=== PATIENT | female | born 1960 | race Caucasian/White ===

== ENCOUNTER → 2017-11-23 16:54 | Outpatient (CLI) | payer OTHER, SELFPAY ==
--- NOTE | 2017-11-23 16:57 | DI.RAD.S_ITS ---
PROCEDURE: XR FOOT RT MIN 3V INDICATIONS: injury to right foot pain and swelling forefoot 1st/2nd toes TECHNIQUE: 3 views of the foot were acquired. COMPARISON: [facility], , XR FOOT 3V LEFT, 06/21/2000, 15:43. FINDINGS: Bones: No fractures or dislocations. No suspicious bony lesions. Mild hallux valgus metatarsus prima varus alignment and medial bunion. Mild subchondral cystic change involving the medial aspect of the first metatarsal head. Mild first MTP and diffuse interphalangeal joint narrowing. Calcaneal spurring. Soft tissues: No tibiotalar joint effusion. Achilles tendon appears normal. IMPRESSION: 1. No displaced fracture seen. If there is continued pain, followup exam or additional imaging such as MRI or CT could be performed for further assessment. 2. Mild hallux valgus alignment and medial bunion. 3. Mild first MTP and diffuse interphalangeal joint degeneration. 4. Prominent plantar calcaneal enthesophyte. ated by: Saeid Cobb [facility] Interpreted: Aron Perkins MD on 11/23/2017 at 17:05 Approved by: Aron Perkins M.D. on 11/23/2017 at 17:42
== END ==
PROVIDERS: Family Provider Nurse Practitioner; PCP Physician Assistant; Visit Provider Physician Assistant
DX: M79.671 Pain in right foot (principal); M21.611 Bunion of right foot; M19.071 Primary osteoarthritis, right ankle and foot; M77.31 Calcaneal spur, right foot
CPT/HCPCS: 73630

== ENCOUNTER → 2018-01-05 08:46 | Outpatient (CLI) | payer OTHER, SELFPAY ==
--- NOTE | 2018-01-05 08:56 | DI.CT.S_ITS ---
PROCEDURE: CT LE RT WO CON INDICATIONS: Injury to right great toe persistant pain/swelling TECHNIQUE: Noncontrast 1-1.5 mm axial sections acquired from above the tibiotalar joint to the bottom of the calcaneus, with coronal and sagittal reformats. COMPARISON: [facility], CR, XR FOOT RT MIN 3V, 11/23/2017, 16:37. FINDINGS: Image quality: Excellent. Bones: No fracture identified. Specifically, no fracture demonstrated subjacent to the patient's dorsal cutaneous marker at the level of the 1st metatarsophalangeal joint. There is mild degeneration of the 1st metatarsophalangeal joint. There is a bipartite medial sesamoid. No definite joint effusions. Soft tissues: There is minimal fat stranding along the lateral aspect of the 1st metatarsophalangeal joint. Visualized flexor and extensor tendons appear grossly intact. No discrete mass or fluid collection demonstrated subjacent to the cutaneous marker in the area of pain symptoms. Visualized musculature demonstrates preserved bulk. IMPRESSION: 1. No fracture identified in the right foot corresponding to the area of pain. 2. Slight fat stranding along the lateral aspect of the 1st metatarsophalangeal joint is nonspecific and may reflect a possible capsular sprain. If there is persistent clinical suspicion for a soft tissue or capsular injury, further evaluation maybe obtained with MRI. Dictated by: Aron Perkins M.D. on 01/05/2018 at 16:16 Approved by: Aron Perkins M.D. on 01/05/2018 at 16:24
== END ==
PROVIDERS: Family Provider Nurse Practitioner; PCP Physician Assistant; Visit Provider Physician Assistant
DX: M79.671 Pain in right foot (principal); M79.89 Other specified soft tissue disorders; S99.921A Unspecified injury of right foot, initial encounter
CPT/HCPCS: 73700

== ENCOUNTER → 2018-07-15 13:12 | Outpatient (CLI) | payer OTHER, SELFPAY ==
[2018-07-15 14:42] LABS: Free T3, Triiodothyronine Free 3.75 pg/mL (2.77-5.27); Free T4, Direct Thyroxine 1.27 ng/dL (0.78-2.19)
[2018-07-15 14:56] LABS: Thyroid Stimulating Hormone 1.77 uIU/mL (0.47-4.68)
== END ==
PROVIDERS: Family Provider Physician Assistant; PCP Physician Assistant; Visit Provider Physician Assistant
DX: E03.9 Hypothyroidism, unspecified (principal)
CPT/HCPCS: 36415; 84439; 84443; 84481

== ENCOUNTER → 2019-04-05 13:42 | Outpatient (CLI) | payer OTHER, SELFPAY ==
--- NOTE | 2019-04-05 13:45 | DI.RAD.S_ITS ---
PROCEDURE: XR RIBS LT MIN 3V W CXR1V INDICATIONS: fall, pain to L ribs, r/o fx TECHNIQUE: 2 views of the left ribs were acquired, along with a single view chest. COMPARISON: None. FINDINGS: Surgical changes and devices: None. Bones and chest wall: No fractures or dislocations. No suspicious bony lesions. Overlying soft tissues appear unremarkable. Lungs and pleura: No pleural effusions or pneumothorax. Lungs appear clear. Mediastinum: Mediastinal contours appear normal. Heart size is normal. IMPRESSION: No acute fracture identified. No acute cardiopulmonary abnormalities. Dictated by: Fransico Hernández M.D. on 04/05/2019 at 15:18 Approved by: Fransico Hernández M.D. on 04/05/2019 at 15:19
== END ==
PROVIDERS: Family Provider Physician Assistant; PCP Physician Assistant; Visit Provider Physician Assistant
DX: S20.219A Contusion of unspecified front wall of thorax, initial encounter (principal); R07.81 Pleurodynia; W19.XXXA Unspecified fall, initial encounter
CPT/HCPCS: 71101

== ENCOUNTER → 2019-04-10 10:49 | Outpatient (CLI) | payer OTHER, SELFPAY ==
--- NOTE | 2019-04-10 10:51 | DI.RAD.S_ITS ---
PROCEDURE: XR KNEE RT 3V INDICATIONS: fall, knee pain, hx of surgery TECHNIQUE: 3 views of the knee were acquired. COMPARISON: [facility], , KNEE 1-2 VIEWS RIGHT, 11/25/2009, 12:47. FINDINGS: Bones: No fractures or dislocations. No suspicious bony lesions. Soft tissues: No joint effusion. No suspicious soft tissue calcifications. IMPRESSION: Expected postoperative alignment of right knee arthroplasty. No fracture. Dictated by: Silas Gagnon M.D. on 04/10/2019 at 11:24 Approved by: Silas Gagnon M.D. on 04/10/2019 at 11:25
== END ==
PROVIDERS: PCP Physician Assistant; Visit Provider Physician Assistant
DX: M25.561 Pain in right knee (principal); Z96.651 Presence of right artificial knee joint
CPT/HCPCS: 73562

== ENCOUNTER → 2019-07-20 10:00 | Outpatient (CLI) | payer OTHER, SELFPAY ==
[2019-07-20 11:30] LABS: Free T3, Triiodothyronine Free 3.68 pg/mL (2.77-5.27); Free T4, Direct Thyroxine 1.39 ng/dL (0.78-2.19)
[2019-07-20 11:43] LABS: Thyroid Stimulating Hormone 1.97 uIU/mL (0.47-4.68)
== END ==
PROVIDERS: PCP Physician Assistant; Referring Provider Physician Assistant; Visit Provider Physician Assistant
DX: E03.9 Hypothyroidism, unspecified (principal)
CPT/HCPCS: 36415; 84439; 84443; 84481

== ENCOUNTER → 2020-05-22 12:17 | Outpatient (CLI) | payer OTHER, SELFPAY | PROVIDERS: PCP Nurse Practitioner; Referring Provider Nurse Practitioner; Visit Provider Nurse Practitioner | DX: Z12.31 Encounter for screening mammogram for malignant neoplasm of breast (principal); Z53.20 Procedure and treatment not carried out because of patient's decision for unspecified reasons ==

== ENCOUNTER → 2020-06-19 12:09 | Outpatient (CLI) | payer OTHER, SELFPAY ==
[2020-06-19] MEDS: COVID-19 VACC(MODERNA-1)/PF 100 MCG/0.5 ML VIAL IM (12:14)
== END ==
PROVIDERS: PCP Nurse Practitioner; Visit Provider Internal Medicine
DX: Z23 Encounter for immunization (principal)
CPT/HCPCS: 0011A; 91301

== ENCOUNTER → 2020-07-18 11:59 | Outpatient (CLI) | payer OTHER, SELFPAY ==
[2020-07-18] MEDS: COVID-19 VACC #2, MRNA(MOD) 100 MCG/0.5 ML VIAL IM (12:17)
== END ==
PROVIDERS: PCP Nurse Practitioner; Visit Provider Internal Medicine
DX: Z23 Encounter for immunization (principal)
CPT/HCPCS: 0012A; 91301

== ENCOUNTER → 2020-11-04 16:25 | Outpatient (CLI) | payer OTHER, SELFPAY ==
--- NOTE | 2020-11-04 16:27 | DI.RAD.S_ITS ---
PROCEDURE: XR KNEE LT 3V INDICATIONS: Left knee pain and giving way TECHNIQUE: 3 views of the knee were acquired. COMPARISON: [facility], CR, XR KNEE RT 3V, 04/10/2019, 10:51. FINDINGS: Bones: No fractures or dislocations. Moderate to severe tricompartmental osteoarthritis is seen more prominent in medial femoral tibial compartment. No suspicious bony lesions. Soft tissues: Small suprapatellar joint effusion is seen. No suspicious soft tissue calcifications. IMPRESSION: Moderate to severe tricompartmental osteoarthritis more prominent in medial femoral tibial compartment. Small suprapatellar joint effusion. No fracture or dislocation. Dictated by: Carl Daniel M.D. on 11/04/2020 at 17:37 Approved by: Carl Daniel M.D. on 11/04/2020 at 17:38
== END ==
PROVIDERS: PCP Nurse Practitioner; Referring Provider Family Medicine; Visit Provider Family Medicine
DX: M25.562 Pain in left knee (principal); I10 Essential (primary) hypertension; M17.12 Unilateral primary osteoarthritis, left knee; M25.462 Effusion, left knee
CPT/HCPCS: 73562

== ENCOUNTER → 2020-11-07 17:32 | Outpatient (CLI) | payer OTHER, SELFPAY ==
--- NOTE | 2020-11-07 17:33 | DI.MRI.S_ITS ---
PROCEDURE: MR KNEE LT WO CON INDICATIONS: Left knee pain and giving way TECHNIQUE: Noncontrast sagittal PD fast spin echo and T2 fast spin echo with fat saturation, sagittal 3-D FLASH with fat saturation; coronal T1 spin echo and PD fast spin echo with fat saturation, and axial PD fast spin echo with fat saturation through the knee. COMPARISON: None. FINDINGS: Image quality: Diagnostic. Patient motion is noted, several sequences were repeated Menisci: There is peripheral displacement of medial meniscus bowing medial collateral ligament. Suggestion of complex tear involving body and posterior horn of medial meniscus extending to both superior and inferior articulating surfaces. There is also suggestion of complex tear involving anterior horn of lateral meniscus extending to superior articulating surface. The meniscal root ligaments appear intact. Cruciate ligaments: ACL is poorly visualized, suggestive of chronic myxoid degenerative changes and moderate grade intrasubstance partial-thickness tear. No definite full-thickness ACL rupture is seen. PCL is grossly intact. Medial structures: Moderate grade partial-thickness tear involving medial collateral ligament is seen. The posterior oblique ligament, semimembranosus tendon insertions, oblique popliteal ligament, and meniscocapsular junction appear intact. Visualized portions of the pes anserinus tendons appear normal. No abnormal bursal fluid. Lateral structures: The lateral collateral ligament, long and short heads of the biceps femoris tendon appear intact. The popliteus tendon appears normal. Iliotibial band appears normal. Anterior structures: The quadriceps and patellar tendons appear intact. Patellar alignment is normal. No femoral trochlear dysplasia or ventral trochlear prominence. No edema in the infrapatellar fat pad. Bones and cartilage: No bone marrow contusions or fractures. Moderate to severe tricompartmental osteoarthritis and chondromalacia is seen most prominent in medial femoral tibial compartment. Joint space: There is moderate amount of joint fluid, a small popliteal cyst is seen. Normal appearing synovial plicae are incidentally noted. IMPRESSION: 1. Limited study due to significant patient motion. 2. Suggestion of complex tear involving body and posterior horn of medial meniscus extending to both superior and inferior articulating surfaces. Peripheral displacement of medial meniscus bowing medial collateral ligament. Suggestion of complex tear involving anterior horn of lateral meniscus extending to superior articulating surface. 3. Poorly visualized anterior cruciate ligament with suggestion of chronic myxoid degenerative changes and moderate intrasubstance partial-thickness tear involving anterior cruciate ligament. No definite full-thickness ACL rupture. PCL is intact. 4. Moderate grade MCL sprain/partial-thickness tear. 5. Moderate to severe tricompartmental osteoarthritis and chondromalacia most prominent in medial femoral tibial compartment. Moderate amount of joint fluid. Small popliteal cyst. Dictated by: Carl Daniel M.D. on 11/08/2020 at 10:08 Approved by: Carl Daniel M.D. on 11/08/2020 at 10:14
== END ==
PROVIDERS: PCP Nurse Practitioner; Referring Provider Family Medicine; Visit Provider Family Medicine
DX: M25.562 Pain in left knee (principal); S83.412A Sprain of medial collateral ligament of left knee, initial encounter; M17.12 Unilateral primary osteoarthritis, left knee; M94.262 Chondromalacia, left knee; M71.22 Synovial cyst of popliteal space [Baker], left knee; I10 Essential (primary) hypertension
CPT/HCPCS: 73721

== ENCOUNTER → 2020-12-04 07:51 | Outpatient (CLI) | payer OTHER, SELFPAY ==
[2020-12-04 09:26] LABS: Hemoglobin A1C% w Est Avg Glu 5.2 % (4.0-6.0)
[2020-12-04 09:47] LABS: BUN Creatinine Ratio 24.3 (6-22); Blood Urea Nitrogen 25 mg/dL (7-17); Calcium 9.6 mg/dL (8.4-10.2); Carbon Dioxide 29 mmol/L (22-32); Chloride 102 mmol/L (98-107); Estimated Glomerular Filt Rate 54.8 mL/min (>60); Glucose 97 mg/dL (70-100); HEMOLYSIS < 15 (0-50); Potassium 4.1 mmol/L (3.4-5.1); Sodium 138 mmol/L (137-145)
[2020-12-04 09:52] LABS: Alanine Aminotransferase 16 IU/L (<35); Albumin 3.8 g/dL (3.5-5.0); Albumin Globulin Ratio 1.2 (1.0-2.8); Alkaline Phosphatase 103 U/L (38-126); Aspartate Aminotransferase 24 IU/L (14-36); Bilirubin Total 0.5 mg/dL (0.2-1.3); Bilirubin Unconjugated 0.4 mg/dL (0.0-1.1); Cholesterol 164 mg/dL (140-199); Globulin 3.1 g/dL (1.7-4.1); HDL Cholesterol 40 mg/dL (40-60); HEMOLYSIS < 15 (0-50); LDL Cholesterol Calculated 93 mg/dL (<100); Total Protein 6.9 g/dL (6.3-8.2); Triglycerides 155 mg/dL (35-150)
== END ==
PROVIDERS: PCP Nurse Practitioner; Referring Provider Orthopaedic Surgery; Visit Provider Orthopaedic Surgery
DX: Z01.812 Encounter for preprocedural laboratory examination (principal); Z01.818 Encounter for other preprocedural examination; Z00.00 Encounter for general adult medical examination without abnormal findings; R73.01 Impaired fasting glucose; M25.562 Pain in left knee
CPT/HCPCS: 36415; 80048; 80061; 80076; 83036; 93005; 93010

== ENCOUNTER → 2020-12-07 09:54 | Outpatient (CLI) | payer OTHER, SELFPAY ==
[2020-12-07 11:15] LABS: COVID19 -Nasal RAPID Negative (Negative)
== END ==
PROVIDERS: PCP Nurse Practitioner; Referring Provider Physician Assistant; Visit Provider Physician Assistant
DX: Z01.812 Encounter for preprocedural laboratory examination (principal); Z20.822 Contact with and (suspected) exposure to COVID-19
CPT/HCPCS: 87635

== ENCOUNTER 2020-12-09 12:59 | Day surgery (SDC) | payer OTHER, SELFPAY ==
[2020-12-06 11:40] VITALS: BMI 37.9
[2020-12-09] VITALS (11 sets, daily range): BP systolic 114–139; BP diastolic 70–96; PULSE 62–69; RESP 9–18; TEMP 36.2–37.3; O2SAT 92–96; BMI 37.9
--- NOTE | 2020-12-09 06:30 | DI.RAD.S_ITS ---
PROCEDURE: XR KNEE LT 1TO2V INDICATIONS: post op total knee LEFT TECHNIQUE: 2 view(s) of the knee acquired. [facility] 16:47. [facility], XR KNEE RT 3V, 04/10/2019, 10:51. FINDINGS: Bones: Patient is status post knee joint arthroplasty. Hardware components are in expected positions. Visualized bony structures are intact. Soft tissues: Overlying postoperative changes are noted. IMPRESSION: Expected postoperative appearance of the left knee arthroplasty. Dictated by: Cesar Brink M.D. on 12/10/2020 at 8:55 Approved by: Cesar Brink M.D. on 12/10/2020 at 8:57
[2020-12-09] MEDS: ACETAMINOPHEN 325 MG TABLET 975 MG PO (13:51)
[2020-12-09] MEDS: PREGABALIN 75 MG CAPSULE PO (13:51)
[2020-12-09] MEDS: LACTATED RINGERS 1,000 ML 42 ML IV (13:52)
--- NOTE | 2020-12-09 14:43 | PM.PREOP ---
Pre-operative Note COVID-19 COVID-19 status: Negative Result date/Date tested (Pos, Neg/Pending): 12/07/20 Interval Note History & Physical reviewed/Exam performed by Physician: Yes Changes to H&P: No
[2020-12-09] MEDS: CEFAZOLIN 1 GM VIAL 2 GM IV (15:10)
[2020-12-09] MEDS: TRANEXAMIC ACID 1,000 MG VIAL 1000 MG INJ ×2 (15:12→16:18)
--- NOTE | 2020-12-09 15:24 | SUR.OPER ---
Supine on padded OR bed. Pillow under head, arms secured on padded armboards <90 degree abduction. Safety belt across torso. Non-operative leg secured with tape over blanket over lower leg. Operative leg secured in [place]. Foam padded brace at thigh of operative leg.
[2020-12-09] MEDS: BUPIVACAINE 0.25% (PF) VIAL 30 ML INJ (15:31)
[2020-12-09] MEDS: BUPIVACAINE LIPOSOME 266 MG/20 ML VIAL INJ (15:32)
--- NOTE | 2020-12-09 16:52 | PM.OP.1 ---
Operative Date/Time/Diagnoses Date of procedure: 12/09/20 Time of procedure: 16:53 Pre-op diagnosis: Left knee osteoarthritis Post-op diagnosis: same Procedure & Clinicians Procedure: Left total knee replacement Same procedure as scheduled: Yes Indications: The patient has had progressively worsening left knee pain with radiographic changes consistent with arthritis. Non-operative management has failed and the patient has requested total knee replacement. The risks, benefits and alternatives to surgery were discussed with the patient prior to proceeding. Risks discussed included, but were not limited to, failure to relieve pain, stiffness, infection, nerve damage, deep venous thrombosis, pulmonary embolism, stroke, coma, heart attack, permanent paralysis and , as well as the potential need for eventual revision of the prosthetic. Surgeon: London Alvares Adventure Therapist: Sydnie Reynoso Anesthesia Type: Spinal, Sedation and Local Operative Notes Findings: Severe tricompartmental osteoarthritis Closure Type: primary Specimen(s): none sent Prosthetic devices, grafts, tissues, transplants, or devices: Implants used in this procedure were manufactured by the [employer] and [employer] and included the BCS II Journey total knee replacement with a size 5 left Oxinium femur, 4 left non porous tibial base plate, a 9 mm cross-linked polyethylene tibial insert and a 32 mm oval celina II patellar component Applied: implant(s) Estimated Blood Loss (mL): 25 Blood products transfused: none Tourniquet time (min): 52 Procedure in detail: The patient was seen in the pre-operative area, where the left knee was identified as the operative site and this was marked with my initials. The patient received pre-operative antibiotics, and was taken to the operating room and placed on the operative table in the supine position. After satisfactory anesthesia, a peer specialist out was performed. The left leg was encircled with a tourniquet about the proximal thigh, and the leg was prepared from the toes to the tourniquet with ChloroPrep in the usual fashion and draped through sterile drapes. The leg was elevated and exsanguinated with Eschmark bandage and the tourniquet inflated to 250 mmHg pressure. The knee was approached through an approximately 18 cm incision centered over the patella and carried into the knee through a medial parapatellar arthrotomy. The anterior osteophytes and soft tissues were removed. The rotational landmarks of Livan's line and the transepicondylar axis were marked on the femur with electrocautery, and intramedullary guide holes for the femur and tibia were created. The distal femoral cut was made in 6 degrees of valgus using the intramedullary guide at the primary cut setting. The proximal tibial cut was then made using the intramedullary guide, taking 9 mm of bone off the less involved side. The extension gap was checked and the rotation of the femoral component confirmed with the gap balancing blocks. The anterior, posterior and chamfer cuts were then made. The posterior osteophytes and soft tissues were then removed. The posterior capsule was injected with part of a mixture of 60 ml 0.25% Marcaine mixed with 20 ml Exparel for post-operative pain control. The remainder of this mixture was injected into the capsule and subcutaneous tissues during cement curing. The tibia was prepared with the rotation set by an extra medullary guide. Trial tibial and femoral components were then placed and the intercondylar notch cut through the femoral trial. Range of motion was 0-130 degrees, with good stability throughout the range. The patella was then cut to accommodate the patellar prosthetic. There was no need for a lateral release. The trials were then removed, and the femoral hole plugged with a bone plug. The bone was prepared with pulsatile lavage, and dried with a sponge. Cement was applied and the final prosthetics placed. Excess cement was removed during and after cement curing. After confirming there was no extruded cement posteriorly, the final tibial insert was placed. The knee was copiously irrigated and the tourniquet deflated. Hemostasis was obtained. The capsule was closed with interrupted # 2 polyester sutures. The subcutaneous layer was closed with 3-0 Vicryl, and the skin with a running 3-0 V-Lock suture and Dermabond. An Aquacel Ag dressing was applied and the patient was taken to recovery having tolerated the procedure well. Complications: none Post-operative Condition: stable Disposition: PACU Plan for aftercare: The patient will be maintained on a standard total knee replacement protocol with weight bearing as tolerated. The patient will receive aspirin and sequential compression devices for DVT prophylaxis. The patient will be discharged home when safe for the home environment.
[2020-12-09] MEDS: OXYCODONE IR 5 MG TABLET PO (17:04)
--- NOTE | 2020-12-09 17:36 | SUR.PHASEI ---
1722 to room 216, bed down and locked, call light within reach. Spouse present. Report given upon arrival. SCDs on. Staff informed of need for continuous pulse oximetry r/t duramorph spinal. Clothing bag and glasses to the room. Patient awake, oriented, comfortable, tolerating PO well. Stable with no questions from pt, staff, or her spouse.
[2020-12-09] MEDS: ONDANSETRON 4 MG/2 ML INJ IV (19:01)
[2020-12-09] MEDS: LACTATED RINGERS 1,000 ML 100 ML IV (19:02)
[2020-12-09] MEDS: ACETAMINOPHEN 325 MG TABLET 650 MG PO (21:10)
[2020-12-09] MEDS: IBUPROFEN 400 MG TABLET PO (21:10)
[2020-12-09] MEDS: ASPIRIN EC 81 MG TABLET PO (21:10)
[2020-12-09] MEDS: DOCUSATE 100 MG CAPSULE PO (21:10)
[2020-12-09] MEDS: carvediloL 3.125 MG TABLET 6.25 MG PO (21:11)
[2020-12-09] MEDS: HYDRALAZINE 10 MG TABLET PO (21:11)
[2020-12-10 00:30] VITALS: BP 130/81; PULSE 62; RESP 18; TEMP 36.5; O2SAT 95
[2020-12-10] MEDS: OXYCODONE IR 5 MG TABLET PO (01:52)
[2020-12-10 03:46] VITALS: BP 115/68; PULSE 73; RESP 18; TEMP 37.1; O2SAT 95
[2020-12-10] MEDS: LACTATED RINGERS 1,000 ML 100 ML IV (04:45)
[2020-12-10] MEDS: IBUPROFEN 400 MG TABLET PO ×2 (04:45→08:33)
[2020-12-10 05:39] LABS: Hematocrit 34.7 % (36-46); Hemoglobin 11.6 g/dL (12.0-16.0)
[2020-12-10 07:36] VITALS: BP 107/72; PULSE 64; RESP 16; TEMP 36.3; O2SAT 96
--- NOTE | 2020-12-10 07:58 | PM.DS.1 ---
History of Present Illness History of Present Illness Date Patient Seen: 12/10/20 Time Patient Seen: 07:58 Chief complaint: OPB Narrative: The history and physical is contained in the chart previously completed note. Please refer to that note for this information. Discharge Providers Provider Date of admission: 12/09/20 Discharge Date: 12/10/20 Primary care physician: LONDON Kong Consults: 12/09/20 17:41 Consult to Discharge Planning Routine Comment: Consult to Physical Therapy Evaluate & Treat Comment: Physician Instructions: postop TKA protocol Discharge provider: London Alvares MD Summary Hospital Course Discharge Diagnosis: 1. Left knee osteoarthritis 2. Post hemorrhagic anemia Hospital Course: The patient was admitted to the hospital and taken directly to the operating room on December 09, 2020. She underwent a left total knee replacement without complication. On postoperative day 1 she appears to be stable and has relatively good pain control. Plan is for discharge after physical therapy. Status at Discharge Cognitive/behavioral status at discharge: oriented Functional status at discharge: uses cane/walker Overall status at discharge: patient is progressing back to baseline Time Spent with Patient Time spent: Less than 30 minutes Exam Vital Signs (past 8 hours): - 12/10/20 00:30 12/10/20 03:46 Temperature 97.7 F 98.8 F Pulse Rate 62 73 Respiratory Rate 18 18 Blood Pressure 130/81 115/68 Pulse Oximetry 95 95 Oxygen Delivery Method Room Air Oxygen Flow Rate 0 Narrative Exam Narrative: Left knee wound is dressed with no drainage on the bandage. Calf is soft. Light touch and motion are intact in the left lower extremity. Objective Labs Result Diagrams: 12/10/20 05:23 Labs: Laboratory Results - last 24 hr 12/10/20 05:23 Hgb 11.6 L Hct 34.7 L PFSH Medical History (Updated 12/06/20 @ 11:54 by Rachel Schmidt RN) Allergic rhinitis Asthma Cataracts, bilateral (2006) Chickenpox (1963) Chronic back pain (2008) Eczema Hemorrhoids (1983) Hypertension Hypokalemia (08/2011) Hypothyroidism Impaired fasting glucose Knee pain (~12/2010) Left knee pain Morbid obesity with body mass index (BMI) of 40.0 to 49.9 (08/25/16) Palpitation (08/2011) Scoliosis Surgical History History of knee replacement (12/24/09) Family History Father Prostate cancer Alcoholism Mother Stroke Thrombophlebitis S/P triple vessel bypass Hypertension Heart disease Brother Stroke Brother Stroke Social History household members: spouse and children Smoking Status: Never smoker second hand exposure: No alcohol intake: former substance use type: does not use Discharge Assessment & Plan Assessment and Plan Assessment: Doing well postoperatively after left total knee replacement. She has a mild post hemorrhagic anemia which should not require further treatment. Plan of Treatment: Discharge home after physical therapy this morning. Follow-up in my office in 10-14 days. Prescriptions have been sent to the pharmacy for oxycodone and Vistaril. She is instructed in the use of ibuprofen, Tylenol and aspirin. Discharge Plan Discharge Plan Patient Disposition: Home Discharge orders & Medications Discharge Orders: Discharge (Order); Ordered 12/10/20 Ordered By: London Alvares Prescriptions: New acetaminophen 325 mg Tablet 650 mg PO TID 30 Days Qty: 180 RF: 0 aspirin 81 mg Tablet,Delayed Release (Dr/Ec) 81 mg PO BID 42 Days Qty: 84 RF: 0 ibuprofen 400 mg Tablet 400 mg PO Q4HR 30 Days RF: 0 oxycodone 5 mg Tablet 5 mg PO Q4H PRN (Reason: Pain, Moderate (4-6)) Qty: 40 RF: 0 hydroxyzine pamoate 25 mg Capsule 25 mg PO Q6HR PRN (Reason: Nausea) Qty: 30 RF: 0 Continued cetirizine [Zyrtec] 10 mg tablet 10 mg PO DAILY RF: 0 cholecalciferol (vitamin D3) 2,000 unit capsule See Rx Instructions PO DAILY RF: 0 multivitamin tablet 1 tab PO DAILY RF: 0 carvedilol 6.25 mg tablet 6.25 mg PO BID RF: 0 isosorbide mononitrate 30 mg tablet extended release 24 hr 30 mg PO DAILY RF: 0 hydralazine 10 mg tablet 10 mg PO TID RF: 0 Disabled Parking Permit Qty: 1 RF: 0 levothyroxine 25 mcg tablet 25 mcg PO DAILY Qty: 90 RF: 0 furosemide 40 mg tablet 40 mg PO DAILY RF: 0 Follow up/Referrals: Salyl Mckinney ARNP [Primary Care Provider] - London Alvares MD [Physician] - 2 Weeks Diet/Activity/Treatments Diet: Diet as Tolerated and Regular Activity: You may bear weight as tolerated on your left leg. Cold/Heat Therapy: Apply ice to the left knee for 15 minutes of every hour as needed. Skin/Wound/Dressing Care Report to your healthcare provider any signs of infection, such as:: chills, fever, night sweats, increased pain, unusual drainage and unusual redness Dressing: You may remove the Mariano wrap 3 days after surgery and shower normally. Remove the battery pack from the deeper dressing before showering. Visit Report/Discharge Packet Instructions: DI for Knee Replacement Stand Alone Forms: Surgery Discharge Discharge Data Primary Care Provider: Sally Mckinney Attending Provider: London Alvares Quality VTE Deep Vein Thrombosis/Pulmonary Embolism Present on Admission: No
[2020-12-10] MEDS: DOCUSATE 100 MG CAPSULE PO (08:31)
[2020-12-10] MEDS: ACETAMINOPHEN 325 MG TABLET 650 MG PO (08:32)
[2020-12-10] MEDS: FUROSEMIDE 40 MG TABLET PO (08:33)
[2020-12-10 08:34] VITALS: BP 115/68; PULSE 73
[2020-12-10] MEDS: ASPIRIN EC 81 MG TABLET PO (08:34)
[2020-12-10] MEDS: LORATADINE 10 MG TABLET PO (08:34)
[2020-12-10] MEDS: carvediloL 3.125 MG TABLET 6.25 MG PO (08:34)
[2020-12-10 08:36] VITALS: BP 115/68; PULSE 73
[2020-12-10] MEDS: HYDRALAZINE 10 MG TABLET PO (08:36)
[2020-12-10] MEDS: ISOSORBIDE MONONITRATE ER 30 MG TABLET PO (08:36)
--- NOTE | 2020-12-10 08:55 | PT.IIE ---
Current Diagnoses Unilateral primary osteoarthritis, left knee (12/09/20) Surgery Performed Operation Date: 12/09/20 15:15 Actual Procedures p Total Knee Arthroplasty(Left) - Lodnon Alvares MD Surgical History (Last Reviewed 11/08/20 @ 12:27 by LONDON Kong) History of knee replacement (12/24/09) Medical History (Last Updated 12/06/20 @ 11:54 by Rachel Schmidt RN) Allergic rhinitis Asthma Cataracts, bilateral (2006) Chickenpox (1963) Chronic back pain (2008) Eczema Hemorrhoids (1983) Hypertension Hypokalemia (08/2011) Hypothyroidism Impaired fasting glucose Knee pain (~12/2010) Left knee pain Morbid obesity with body mass index (BMI) of 40.0 to 49.9 (08/25/16) Palpitation (08/2011) Scoliosis Physical Therapy Inpatient Evaluation/Re-Eval M1 PT/OT-IP Prior Functional Status Start: 12/10/20 12:50 Freq: NEEDED Status: Active Protocol: Document 12/10/20 08:55 AB (Rec: 12/10/20 13:01 AB [id number]) Medical Review Prior Functional Status Medical History Reviewed Yes Communication able to make needs known Mobility and Gait pt stated that she is independent with all mobilities and ambulation without AD but has used crutches for has last month due to knee pain Social History Household Members spouse Living Arrangements House Number of Floors (Floors) One Floor Number of Stairs To Enter/Railing? 2 platform steps without rails to enter Home Environment Standard Height Toilet,Walk in Shower Home Equipment Front Wheel Walker,Crutches, Grab Bars In Shower M2 PT-IP Current Condition Start: 12/10/20 12:50 Freq: NEEDED Status: Active Protocol: Document 12/10/20 08:55 AB (Rec: 12/10/20 13:01 AB [email or web address]) Physical Therapy Current Condition Current Condition Evaluation Date 12/10/20 Treatment Diagnosis s/p L TKA; difficulty in walking Onset Date 12/09/20 Weight Bearing Status Weight Bearing Status Weight Bear as Tolerated Allowed Weight Bearing Amount (enter % LLE WBAT or #) (%) M3 PT-IP Subjective Start: 12/10/20 12:50 Freq: NEEDED Status: Active Protocol: Document 06/29/21 08:55 AB (Rec: 12/10/20 13:01 [id number]) Subjective Physical Therapy Visit Type Type Initial Evaluation Visit Start Time 08:55 Visit Stop Time 09:44 Total Visit Minutes 49 Number of RECLAIMER Visits 0 Physical Therapy Visit Comments Patient Comments pt is agreeable to do PT Therapy Pain Assessment Pain When Pain Assessed At Rest Pain Present Pain Present Pain Reported Location Right Hand Intensity 6 Scale Used Numeric (0 - 10) Pain Management Techniques Apply Cold,Modification of Treatment,Re-positioning M4 PT-IP Mobility and Gait Start: 12/10/20 12:50 Freq: NEEDED Status: Active Protocol: Document 12/10/20 08:55 AB (Rec: 12/10/20 13:01 [id number]) PT-Bed Mobility Assessment Supine to Sit Supine to Sit Standby Assistance PT-Transfer Assessment Sit to and From Stand Sit to and from Stand Contact Guard Assistance,1 Person Assistance,Use of Upper Extremities Equipment Transfer Assistive Device Gait Belt,Front Wheeled Walker Orthotic/Prosthetic Devices or Brace: No Transfers Transfer Destination Chair Transfer Technique ambulated using FWW Transfer Ability Level of Assist Contact Guard Assistance,1 Person Assistance,Use of Upper Extremities Comments Mobility Comments pt completed supine to sit SBA . able to sit on EOB SBA. completed sit to stand CGA and cues for L quads activation. completed ambulation towards the chair using FWW CGA. caregiver training conducted with pt and spouse. educated spouse on how to use safety belt and how to assist pt. spouse was able to put safety belt on and assisted pt with sit to stand ambulation ~ 25 ft using FWW providing CGA. pt completed up/down platform step using FWW CGA and cues. refused to do anther rep and stated that she feels drowsy and wants to rest. pt ambulated back to the room and agreed to sit on chair. positioned on chair. call light and table placed within reach. spouse was able to use safety belt on and assist . Gait Assessment Gait Gait Assistance Required: Contact Guard Assist Distance (Feet) 25 Able to Maintain Weight Bearing Status Yes During Gait Assistive Devices Assistive Device Gait Belt,Front Wheeled Walker Orthotic/Prosthetic Devices or Brace: No Gait Deviations General Gait Pattern Antalgic,Decreased Stride Length,Decreased Feet Clearance,Step-to Gait Factors Limiting Gait Function Factors Limiting Gait Function Decreased Activity Tolerance, Decreased Strength,Limited Range of Motion,Pain,Poor Balance,Poor Safety Awareness Stair Climbing Assessment Evaluation Level of Assist On Stairs Contact Guard Assistance,2 Person Assistance Devices Stair Climbing Assistive Devices Front Wheel Walker Technique/Endurance Stair Climbing Direction Ascend and Descend Stair Climbing Technique Step to Step Number of Steps Climbed 1 Query Text: Stair Climbing Set # Repetitions (reps) 1 PT-Balance Assessment Sitting Balance and Reactions Static Sitting Balance Ability Good Dynamic Sitting Balance Ability Good Standing Balance and Reactions Static Standing Balance Ability Fair Dynamic Standing Balance Ability Fair Device Used FWW M5 PT-IP Objective Assessments Start: 12/10/20 12:50 Freq: NEEDED Status: Active Protocol: Document 12/10/20 08:55 AB (Rec: 12/10/20 13:01 [email or web address]) Orientation Orientation/Cognition Level of Alertness Alert Orientation Name,Situation Strength Lower Extremity Strength Knee L knee flexion: ~ 50 deg L knee extension: ~ 10 deg less to ) Muscle Tone Muscle Tone WNL Yes M6 PT-IP Treatment Start: 12/10/20 12:50 Freq: NEEDED Status: Active Protocol: Document 12/10/20 08:55 AB (Rec: 12/10/20 13:01 [email or web address]) Physical Therapy Treatment Exercises Exercises Heel Slides Education Education Provided Precautions,Weight Bearing Status,Post-Op Packet,Safety M7 PT-IP Assessment and Plan Start: 12/10/20 12:50 Freq: NEEDED Status: Active Protocol: Document 12/10/20 08:55 AB (Rec: 12/10/20 13:01 [email or web address]) PT Summary Assessment and Plan Potential Rehabilitation Potential Good Status of Condition at Evaluation Stable Summary Impairments Pain,ROM,Strength,Balance, Coordination,Sensation,Tone, Cognition,Bed Mobility, Transfers,Gait,Activity Tolerance Assessment Summary pt requiring SBA to CGA with mobility and caregiver training conducted. spouse was able to assist pt safely. pt plans to go home with spouse to assist and has outpt PT scheduled. Goals Bed Mobility Goal Independent Transfer Goal Independent,Front Wheeled Walker Gait Goal Independent,Front Wheel Walker Gait Distance 200 Other Goals up/down 2 platform steps using FWW SBA Days to Meet Goals 5 Frequency of Treatment Frequency Of Treatment Twice a Day Treatment Plan Physical Therapy Treatment Plan Bed Mobility Training,Transfer Training,Gait Training, Therapeutic Exercise,Balance Retraining,Post Op Education, Discharge Planning,Hot or Cold Pack,Neuromuscular Re-ed, Coordination Retraining,Manual Therapy Precautions Other Precautions LLE WBAT Recommendations To Nursing Amount of Assist Needed 1 Person Assist Discharge Recommendations PT Discharge Recommendations Home with Assistance, Outpatient PT Transportation Needs at Discharge Private Vehicle
[2020-12-10] MEDS: OXYCODONE IR 10 MG TABLET PO (09:10)
[2020-12-10] MEDS: LEVOTHYROXINE 25 MCG TABLET PO (09:55)
--- NOTE | 2020-12-10 10:01 | CM.DANOTE ---
DCP: Case received, EMR reviewed and met with patient. , Gilles, was at patient's bedside. Introduced self and role. Was able to obtain information from patient regarding her baseline activity status prior to her surgery. DCP assessment completed with information currently available. Patient is a 60 year old female who admitted yesterday morning to the care of the orthopedic team. PCP: LONDON Kong. Payer: confirmed: [employer]. Patient came to the hospital via private vehicle for a surgical procedure. She had right total knee surgery. Patient has had chronic pain issues to her knee secondary to having osteoarthritis. Met with patient and in her room. She is alert and oriented, and resides with her spouse, Gilles, here in [place]. She is independent at her baseline, but has been using crutches prior to her surgery. She has been able to drive. She is employed at [employer]. She is also set up with outpatient therapy. P: Patient is to be discharged home today with support of spouse. She will be working with P.T. before she leaves. Ly Sagastume RN/Electroformer
[2020-12-10] MEDS: ONDANSETRON 4 MG ODT PO (10:28)
[2020-12-10 10:33] VITALS: BP 121/65; PULSE 67
== END 2020-12-10 10:53 | disposition home or self-care (01) ==
LOC: OR 13:04 → AC 17:40
PROVIDERS: PCP Nurse Practitioner; Referring Provider Orthopaedic Surgery; Visit Provider Orthopaedic Surgery
PROC: 0SRD0JZ Replacement of Left Knee Joint with Synthetic Substitute, Open Approach (ICD-10-PCS; CPT 27447; principal; 2020-12-09 15:15)
DX: M17.12 Unilateral primary osteoarthritis, left knee (principal); I42.8 Other cardiomyopathies; I10 Essential (primary) hypertension; E03.9 Hypothyroidism, unspecified; J45.909 Unspecified asthma, uncomplicated; E66.9 Obesity, unspecified; Z68.38 Body mass index [BMI] 38.0-38.9, adult
CPT/HCPCS: 27447; 36415; 73560; 82962; 85014; 85018; 97161; 97530; C1776; C9290; J0690; J2274; J2405; J2704

== ENCOUNTER → 2021-02-11 14:48 | Outpatient (CLI) | payer OTHER, SELFPAY ==
[2020-12-09 19:40] VITALS: BMI 37.9
[2021-02-11 16:22] LABS: Thyroid Stimulating Hormone 3.31 uIU/mL (0.47-4.68)
== END ==
PROVIDERS: PCP Nurse Practitioner; Referring Provider Nurse Practitioner; Visit Provider Nurse Practitioner
DX: E03.9 Hypothyroidism, unspecified (principal)
CPT/HCPCS: 36415; 84443

== ENCOUNTER → 2021-02-28 07:31 | Outpatient (CLI) | payer OTHER, SELFPAY ==
[2020-12-09 19:40] VITALS: BMI 37.9
[2021-03-03 08:39] LABS: Fecal Immunochemical Test Negative (Negative)
== END ==
PROVIDERS: PCP Nurse Practitioner; Referring Provider Nurse Practitioner; Visit Provider Nurse Practitioner
DX: Z12.11 Encounter for screening for malignant neoplasm of colon (principal)
CPT/HCPCS: 82274

== ENCOUNTER → 2021-06-30 12:01 | Outpatient (CLI) | payer OTHER, SELFPAY ==
[2020-12-09 19:40] VITALS: BMI 37.9
[2021-06-30 13:04] LABS: Thyroid Stimulating Hormone 3.92 uIU/mL (0.47-4.68)
== END ==
PROVIDERS: PCP Nurse Practitioner; Visit Provider Nurse Practitioner
DX: E03.9 Hypothyroidism, unspecified (principal)
CPT/HCPCS: 84443

== ENCOUNTER → 2021-07-11 10:28 | Outpatient (CLI) | payer OTHER, SELFPAY ==
[2020-12-09 19:40] VITALS: BMI 37.9
--- NOTE | 2021-07-11 10:30 | DI.MG.S_ITS ---
BILATERAL DIGITAL SCREENING MAMMOGRAM 3D/2D WITH CAD: 07/11/2021 CLINICAL: Routine screening. Comparison is made to exams dated: 10/01/2009 mammogram and 03/05/2004 mammogram - [facility]. There are scattered fibroglandular elements in both breasts. Current study was also evaluated with a Computer Aided Detection (CAD) system. There is a 0.3 cm x 0.5 cm oval asymmetry with a circumscribed margin in the left breast middle depth inferior region seen on the mediolateral oblique view only 6 cm from the nipple. No other significant masses, calcifications, or other findings are seen in either breast. There has been no significant interval change. IMPRESSION: INCOMPLETE: NEEDS ADDITIONAL IMAGING EVALUATION The 0.3 cm x 0.5 cm oval asymmetry in the left breast is indeterminate. Additional views with possible ultrasound are recommended. This exam was interpreted at Station ID: [id number]. NOTE: For mammograms, a report in lay terms will be sent to the patient. Approximately 15% of breast malignancies will not be visualized mammographically. In the management of a palpable breast mass, a negative mammogram must not discourage biopsy of a clinically suspicious lesion. Electronically Signed By: Rasheed De La O acr/:07/11/2021 11:26:12 letter sent: Additional Imaging Needed ACR BI-RADS Category 0: Incomplete [id number]
== END ==
PROVIDERS: PCP Nurse Practitioner; Referring Provider Nurse Practitioner; Visit Provider Nurse Practitioner
DX: Z12.31 Encounter for screening mammogram for malignant neoplasm of breast (principal)
CPT/HCPCS: 77063; 77067

== ENCOUNTER → 2021-08-13 12:16 | Outpatient (CLI) | payer OTHER, SELFPAY ==
[2020-12-09 19:40] VITALS: BMI 37.9
--- NOTE | 2021-08-13 12:17 | DI.MG.S_ITS ---
BILATERAL DIGITAL DIAGNOSTIC MAMMOGRAM 3D/2D: 08/13/2021 CLINICAL: Add view Left and Right breast pain. Comparison is made to exams dated: 07/11/2021 mammogram and 10/01/[address] mamm[address] - [facility]. There are scattered fibroglandular elements in both breasts. There is a 0.5 cm x 0.3 cm oval asymmetry with a circumscribed margin in the left breast middle depth inferior region seen on the mediolateral oblique view only 6 cm from the nipple. No mass or significant calcifications in the inferior right breast in the region of pain. No other significant masses, calcifications, or other findings are seen in either breast. IMPRESSION: INCOMPLETE: NEEDS ADDITIONAL IMAGING EVALUATION Asymmetry in the left breast resembles a cyst and is indeterminate. A targeted ultrasound is recommended and will immediately follow. No abnormality seen in the inferior right breast in the region of pain. This exam was interpreted at Station ID: [id number]. NOTE: For mammograms, a report in lay terms will be sent to the patient. Approximately 15% of breast malignancies will not be visualized mammographically. In the management of a palpable breast mass, a negative mammogram must not discourage biopsy of a clinically suspicious lesion. Electronically Signed By: Cesar Brink M.D. slc/:08/13/2021 13:07:04 ACR BI-RADS Category 0: Incomplete [id number]
--- NOTE | 2021-08-13 12:17 | DI.US.S_ITS ---
LIMITED ULTRASOUND OF LEFT BREAST AND AXILLA: 08/13/2021 CLINICAL: Patient returns today to evaluate an asymmetry in the left breast. Comparison is made to exams dated: 08/13/2021 mammogram, 07/11/2021 mammogram, and 10/01/2009 mammogram - [facility]. Color flow and real-time ultrasound of the left breast were performed. Ramos scale images of the real-time examination were reviewed. There is a benign 0.4 cm round simple cyst in the left breast at 6 o'clock middle depth 2 cm from the nipple. This round simple cyst is anechoic with a well-defined boundary and posterior acoustic enhancement. This correlates with mammography findings. Color flow imaging demonstrates that there is no vascularity present. IMPRESSION: BENIGN There is no sonographic evidence of malignancy. The 0.4 cm simple cyst in the left breast is benign. A 1 year screening mammogram is recommended. Exam findings were conveyed to the patient. Patient is advised to monitor for significant change. Clinical follow-up as needed. This exam was interpreted at Station ID: [id number]. Electronically Signed By: Cesar Brink M.D. slc/:08/13/2021 13:33:23 letter sent: Normal Exam Ultrasound BI-RADS: 2 Benign
== END ==
PROVIDERS: PCP Nurse Practitioner; Referring Provider Nurse Practitioner; Visit Provider Nurse Practitioner
DX: R92.8 Other abnormal and inconclusive findings on diagnostic imaging of breast (principal); N60.02 Solitary cyst of left breast; N64.4 Mastodynia; N64.89 Other specified disorders of breast
CPT/HCPCS: 76642; 77066; G0279

== ENCOUNTER → 2022-03-26 14:46 | Outpatient (CLI) | payer OTHER, SELFPAY ==
[2020-12-09 19:40] VITALS: BMI 37.9
--- NOTE | 2022-03-26 14:47 | DI.RAD.S_ITS ---
PROCEDURE: XR ANKLE LT MIN 3V INDICATIONS: Left ankle pain TECHNIQUE: 3 views of the ankle were acquired. COMPARISON: None. FINDINGS: Bones: No fractures or dislocations. Ankle mortise is normally aligned. No suspicious bony lesions. Intertarsal joint space narrowing and dorsal marginal osteophytes present. Small calcaneal spur in Soft tissues: No tibiotalar joint effusion. Achilles tendon appears normal. Generalized soft tissue swelling IMPRESSION: Mild degenerative arthritic changes without fracture. Approved by: Timmy Diaz M.D. on 03/26/2022 at 17:35
[2022-03-26 17:25] LABS: Uric Acid 9.4 mg/dL (2.5-6.2)
== END ==
PROVIDERS: PCP Nurse Practitioner; Referring Provider Nurse Practitioner; Visit Provider Nurse Practitioner
DX: M25.572 Pain in left ankle and joints of left foot (principal); M77.32 Calcaneal spur, left foot
CPT/HCPCS: 36415; 73610; 84550

== ENCOUNTER → 2023-12-13 07:11 | Outpatient (CLI) | payer OTHER, MEDICAID, SELFPAY ==
[2020-12-09 19:40] VITALS: BMI 37.9
[2023-12-13 08:02] LABS: Add Manual Diff / Slide Review NO; Basophils Absolute Auto 0 /uL (0-100); Basophils Percent Auto 0.7 % (0-2); Eosinophils Absolute Auto 100 /uL (0-450); Eosinophils Percent Auto 2.9 % (2-4); Hematocrit 40.8 % (36-46); Hemoglobin 13.9 g/dL (12.0-16.0); Hemoglobin A1C% w Est Avg Glu 4.9 % (4.0-6.0); Lymphocytes Absolute Auto 1700 /uL (1100-4500); Lymphocytes Percent Auto 34.2 % (25-40); Mean Corpuscular HGB Conc 34.2 % (30-36); Mean Corpuscular Hemoglobin 29.4 PG (26-34); Monocytes Absolute Auto 300 /uL (0-900); Monocytes Percent Auto 6.2 % (3-14); Neutrophils Absolute Auto 2800 /uL (1500-7000); Platelet Count 149 X10^3/uL (150-400); Red Blood Cell Count 4.74 X10^6/uL (4.0-5.2); Red Cell Distribution Width 15.5 % (11.6-14.8); White Blood Cell Count 5.1 X10^3/uL (4.5-11.0)
[2023-12-13 08:19] LABS: Alanine Aminotransferase 14 IU/L (<35); Albumin 3.8 g/dL (3.5-5.0); Albumin Globulin Ratio 1.2 (1.0-2.8); Alkaline Phosphatase 118 U/L (38-126); Aspartate Aminotransferase 24 IU/L (14-36); BUN Creatinine Ratio 21.8 (6-22); Bilirubin Total 0.6 mg/dL (0.2-1.3); Blood Urea Nitrogen 22 mg/dL (7-17); Calcium 9.1 mg/dL (8.4-10.2); Carbon Dioxide 28 mmol/L (22-32); Chloride 106 mmol/L (98-107); Cholesterol 146 mg/dL (140-199); Estimated Glomerular Filt Rate > 60 mL/min (>60); Globulin 3.3 g/dL (1.7-4.1); Glucose 106 mg/dL (80-110); HDL Cholesterol 42 mg/dL (40-60); HEMOLYSIS < 15 (0-50); LDL Cholesterol Calculated 84 mg/dL (<100); Potassium 3.5 mmol/L (3.4-5.1); Sodium 140 mmol/L (137-145); Total Protein 7.1 g/dL (6.3-8.2); Triglycerides 99 mg/dL (35-150)
[2023-12-13 08:39] LABS: Free T3, Triiodothyronine Free 3.46 pg/mL (2.77-5.27); Free T4, Direct Thyroxine 1.14 ng/dL (0.78-2.19)
[2023-12-13 08:53] LABS: Thyroid Stimulating Hormone 3.14 uIU/mL (0.47-4.68)
[2023-12-13 14:30] LABS: Creatinine Urine Random 36.62 mg/dL
[2023-12-13 14:50] LABS: Microalbumin Urine Random < 0.6 mg/dL (0-1.6)
[2023-12-13 16:49] LABS: HIV 1 & 2 Ab/Ag 4th Gen Combo NEGATIVE (NEGATIVE); Hep C Virus Ab w/Reflex Quant NEGATIVE s/c (NEGATIVE)
== END ==
PROVIDERS: PCP Nurse Practitioner; Referring Provider Nurse Practitioner; Visit Provider Nurse Practitioner
DX: Z00.00 Encounter for general adult medical examination without abnormal findings (principal); Z11.4 Encounter for screening for human immunodeficiency virus [HIV]; Z11.59 Encounter for screening for other viral diseases
CPT/HCPCS: 36415; 80053; 80061; 82043; 82570; 83036; 84439; 84443; 84481; 85025; 86803; 87389

== ENCOUNTER → 2023-12-20 13:01 | Outpatient (CLI) | payer OTHER, SELFPAY ==
[2020-12-09 19:40] VITALS: BMI 37.9
[2023-12-21 12:41] LABS: Fecal Immunochemical Test Positive (Negative)
== END ==
PROVIDERS: PCP Nurse Practitioner; Referring Provider Nurse Practitioner; Visit Provider Nurse Practitioner
DX: Z00.00 Encounter for general adult medical examination without abnormal findings (principal); Z12.11 Encounter for screening for malignant neoplasm of colon
CPT/HCPCS: 82274

== ENCOUNTER → 2024-01-28 07:59 | Outpatient (CLI) | payer OTHER, SELFPAY ==
[2020-12-09 19:40] VITALS: BMI 37.9
--- NOTE | 2024-01-28 08:00 | DI.MG.S_ITS ---
BILATERAL DIGITAL SCREENING MAMMOGRAM 3D/2D WITH CAD: 01/28/2024 CLINICAL: Routine screening. Comparison is made to exams dated: 08/13/2021 mammogram, 07/11/2021 mammogram, and 10/01/2009 mammogram - [facility]. There are scattered areas of fibroglandular density in both breasts (category b / 25%-50% glandular tissue). Current study was also evaluated with a Computer Aided Detection (CAD) system. No significant masses, calcifications, or other findings are seen in either breast. There has been no significant interval change. IMPRESSION: NEGATIVE There is no mammographic evidence of malignancy. A 1 year screening mammogram is recommended. Based on the Tyrer Cuzick model (a risk assessment model) the patient's lifetime risk is 7.6% and her 10 year risk is 3.4%. According to the ACR, ACS, and NCCN guidelines, an annual breast MRI exam along with mammogram is recommended if the patient's lifetime risk is 20% or greater. This exam was interpreted at Station ID: [id number]. NOTE: For mammograms, a report in lay terms will be sent to the patient. Approximately 15% of breast malignancies will not be visualized mammographically. In the management of a palpable breast mass, a negative mammogram must not discourage biopsy of a clinically suspicious lesion. Electronically Signed By: Kalia davis/selene:01/28/2024 09:17:09 letter sent: Normal Exam ACR BI-RADS Category 1: Negative [id number]
== END ==
LOC: MAMMO 08:00
PROVIDERS: PCP Nurse Practitioner; Referring Provider Nurse Practitioner; Visit Provider Nurse Practitioner
DX: Z12.31 Encounter for screening mammogram for malignant neoplasm of breast (principal); R92.323 Mammographic fibroglandular density, bilateral breasts
CPT/HCPCS: 77063; 77067

== ENCOUNTER → 2024-11-14 07:19 | Outpatient (CLI) | payer OTHER, SELFPAY ==
[2020-12-09 19:40] VITALS: BMI 37.9
[2024-11-14 08:10] LABS: Add Manual Diff / Slide Review NO; Basophils Absolute Auto 0 /uL (0-100); Basophils Percent Auto 0.7 % (0-2); Eosinophils Absolute Auto 200 /uL (0-450); Eosinophils Percent Auto 3.6 % (2-4); Hematocrit 46.5 % (36-46); Hemoglobin 15.6 g/dL (12.0-16.0); Lymphocytes Absolute Auto 1800 /uL (1100-4500); Lymphocytes Percent Auto 34.3 % (25-40); Mean Corpuscular HGB Conc 33.5 % (30-36); Mean Corpuscular Hemoglobin 29.5 PG (26-34); Monocytes Absolute Auto 400 /uL (0-900); Monocytes Percent Auto 6.8 % (3-14); Neutrophils Absolute Auto 2900 /uL (1500-7000); Neutrophils Percent Auto 54.6 % (50-75); Platelet Count 133 X10^3/uL (150-400); Red Blood Cell Count 5.29 X10^6/uL (4.0-5.2); Red Cell Distribution Width 14.7 % (11.6-14.8); White Blood Cell Count 5.2 X10^3/uL (4.5-11.0)
[2024-11-14 08:17] LABS: Hemoglobin A1C% w Est Avg Glu 4.8 % (4.0-6.0)
[2024-11-14 08:26] LABS: Alanine Aminotransferase 15 IU/L (<35); Albumin 4.1 g/dL (3.5-5.0); Albumin Globulin Ratio 1.4 (1.0-2.8); Alkaline Phosphatase 88 U/L (38-126); Aspartate Aminotransferase 25 IU/L (14-36); BUN Creatinine Ratio 20.2 (6-22); Bilirubin Total 0.9 mg/dL (0.2-1.3); Blood Urea Nitrogen 21 mg/dL (7-17); Calcium 9.5 mg/dL (8.4-10.2); Carbon Dioxide 25 mmol/L (22-32); Chloride 104 mmol/L (98-107); Cholesterol 159 mg/dL (140-199); Estimated Glomerular Filt Rate > 60 mL/min (>60); Glucose 98 mg/dL (70-99); HDL Cholesterol 39 mg/dL (40-60); HEMOLYSIS < 15 (0-50); LDL Cholesterol Calculated 95 mg/dL (<100); Potassium 4.2 mmol/L (3.4-5.1); Sodium 137 mmol/L (137-145); Total Protein 7.1 g/dL (6.3-8.2); Triglycerides 125 mg/dL (35-150)
[2024-11-14 08:55] LABS: TSH w/ Reflex to FT4 4.13 uIU/mL (0.47-4.68)
== END ==
PROVIDERS: PCP Family Medicine; Referring Provider Family Medicine; Visit Provider Family Medicine
DX: E78.5 Hyperlipidemia, unspecified (principal); R73.01 Impaired fasting glucose; E03.9 Hypothyroidism, unspecified; I10 Essential (primary) hypertension; I42.9 Cardiomyopathy, unspecified
CPT/HCPCS: 36415; 80053; 80061; 83036; 84443; 85025

== ENCOUNTER → 2024-11-28 07:15 | Outpatient (CLI) | payer OTHER, SELFPAY ==
[2020-12-09 19:40] VITALS: BMI 37.9
[2024-11-28 07:47] LABS: Appearance Urine UA CLEAR; Bilirubin Urine UA NEGATIVE (NEGATIVE); Color Urine UA YELLOW; Glucose Urine UA 3+ g/dL (Negative); Ketones Urine UA NEGATIVE (NEGATIVE); Leukocyte Esterase Urine UA NEGATIVE (NEGATIVE); Nitrite Urine UA NEGATIVE (Negative); Occult Blood Urine UA NEGATIVE (Negative); Protein Urine UA NEGATIVE (Negative); Specific Gravity Urine UA 1.015 (1.000-1.035); Urobilinogen Urine UA 0.2 E.U./dL (0.2)
[2024-11-28 07:59] LABS: Bacteria Urine None Seen; Culture Indicated Urine Cult Not Indicated; RBC Urine None Seen (0-5/HPF); Renal Epithelial Cells Urine 1-5/HPF (0-1/HPF); Squamous Epithelial Cell Urine 0-1 /HPF (0-5/HPF); Urine Volume 10mL (spun); WBC Urine 0-1/HPF (0-5/HPF)
== END ==
PROVIDERS: PCP Family Medicine; Referring Provider Orthopaedic Surgery; Visit Provider Orthopaedic Surgery
DX: N39.0 Urinary tract infection, site not specified (principal)
CPT/HCPCS: 81001

== ENCOUNTER 2024-12-19 11:52 | Day surgery (SDC) | payer OTHER, SELFPAY ==
[2020-12-09 19:40] VITALS: BMI 37.9
[2024-12-12 08:20] VITALS: BMI 36.1
[2024-12-19] VITALS (11 sets, daily range): BP systolic 97–139; BP diastolic 32–85; PULSE 57–85; RESP 12–16; TEMP 35.7–36.7; O2SAT 92–98; BMI 36.1
--- NOTE | 2024-12-19 | DI.RAD.S_ITS ---
PROCEDURE: XR HIP W PEL IF DONE LT 2V INDICATIONS: post op total left hip TECHNIQUE: AP pelvis and lateral view of the hip acquired. COMPARISON: None. FINDINGS: Bones: Patient is status post total left hip arthroplasty, with hardware components in expected positions. The hip joint appears congruent. The visualized bony structures appear intact. Soft tissues: Overlying postoperative changes are noted. No suspicious soft tissue densities. IMPRESSION: Expected immediate postoperative appearance, status post total left hip arthroplasty. Dictated by: Hank Mcgowan M.D. on 12/19/2024 at 18:20 Approved by: Hank Mcgowan M.D. on 12/19/2024 at 18:20
--- NOTE | 2024-12-19 06:00 | DI.RAD.S_ITS ---
PROCEDURE: XR PELVIS 1-2V INDICATIONS: intra op left hip TECHNIQUE: Intra-operative view of the pelvis and hip acquired. COMPARISON: [facility], CR, XR HIP 2 VIEWS LEFT, 07/19/2024, 9:46. FINDINGS: Bones: Intraoperative devices prior to placement of arthroplasty prostheses are in expected positions. No fractures or suspicious bony lesions. Soft tissues: Overlying surgical retractors are present, along with other intraoperative changes. IMPRESSION: Expected intraoperative appearance of a left total hip arthroplasty. Approved by: Kalia Harding M.D. on 12/19/2024 at 17:27
[2024-12-19] MEDS: LACTATED RINGERS 1,000 ML 42 ML IV ×2 (12:33→15:44)
[2024-12-19] MEDS: ACETAMINOPHEN 325 MG TABLET 975 MG PO (12:33)
[2024-12-19] MEDS: VANCOMYCIN 1,000 MG in SODIUM CHLORIDE 0.9% 250 ML 250 MG IV (12:57)
--- NOTE | 2024-12-19 13:55 | PM.PREOP ---
Pre-operative Note Interval Note History & Physical reviewed/Exam performed by Physician: Yes Changes to H&P: No
--- NOTE | 2024-12-19 13:56 | PM.PREOP ---
Pre-operative Note Interval Note History & Physical reviewed/Exam performed by Physician: Yes Changes to H&P: No
--- NOTE | 2024-12-19 14:07 | P.OP_ITS ---
Operative Date/Time/Diagnoses Date of procedure: 12/19/24 Time of procedure: 14:30 Pre-op diagnosis: Left hip osteoarthritis Post-op diagnosis: same Procedure & Clinicians Procedure: Left total hip arthroplasty posterior approach Same procedure(s) as scheduled: Yes Indications: The patient has had progressively worsening left hip pain with radiographic changes consistent with arthritis. Non-operative management has failed and the patient has requested total hip replacement. The risks, benefits and alternatives to surgery were discussed with the patient prior to proceeding. Risks discussed included, but were not limited to, failure to relieve pain, leg length discrepancy, dislocation, stiffness, infection, nerve damage, deep venous thrombosis, pulmonary embolism, stroke, coma, heart attack, permanent paralysis and , as well as the potential need for eventual revision of the prosthetic. Surgeon: Dania Soriano [employer] Representative: Abe Guzman Anesthesia Type: General Operative Notes Findings: Severe left hip OA, adequate bone, adequate stability Closure Type: primary Specimen(s): none sent Prosthetic devices, grafts, tissues, transplants, or devices: Soriano and nephew R3 50, neutral poly liner,one 6.5 mm screw, polar stem size 1 standard offset with collar, 36 by -3 Co Ch Applied: none Estimated Blood Loss (mL): 250 Blood products transfused: none Procedure in detail: The patient was seen in the pre-operative area, where the patient identified the left hip as the operative site and this was marked with my initials. The patient received pre-operative antibiotics and was taken to the operating room and placed on the operative table in the right lateral decubitus position after satisfactory anesthesia. A textile machine mechanic out was performed. The left leg was prep ared from the ankle to the iliac crest with ChloroPrep in the usual fashion and draped through sterile drapes. The PA was used during the procedure and was essential for intraoperative retraction and safe implantation of the components. The hip was approached through an approximately 20 cm incision centered over the greater trochanter and curving gently posteriorly as it went proximally. This wa s carried sharply to the fascia bren, which was divided and retracted with a self retaining retractor. The trochanteric bursa was excised with care being taken to avoid the sciatic nerve, which was identified and protected throughout the case. The short external rotators were incised and the capsulomuscular flap was raised and tagged for later repair. The hip was dislocated, and a femoral neck osteotomy performed approximately 15 mm above the lesser trochanter. Retractors were placed around the femur. The canal was opened with a box cutting osteotome, followed by a T handled reamer and a lateralizing reamer. The chili pepper broach was then used, followed by sequential broaching until there was good stability of the broach in the femur. Retractors were placed to expose the acetabulum. The labrum and central soft tissues were removed. Reaming was performed initially going up in 2 mm increments, then 1 mm increments until good bite was obtained with an odd sized reamer. The cup 1 mm larger than the last reamer was then inserted using the appropriate anteversion guides. It was further stabilized with a single screw. A trial neutral liner was placed. The broach was placed in the canal. A trial head and neck were then placed and the hip relocated and checked for leg length and stability. An intraoperative film confirmed the component position and no evidence of fracture. The patient was stable in the position of sleep, of squatting, and could be put through a range of motion with 45 degrees internal rotation without dislocation. At 90 degrees flexion, internal rotation to 70 degrees was possible before dislocation. This was felt to be satisfactory and the appropriate components were opened, and the trials were removed. The acetabular liner was impacted into position. The final stem was then impacted into the prepared femoral canal. A brief Betadine soak was performed while trialing with head options. The hip was meticulously irrigated with normal saline. Finally the femoral head was impacted onto the stem. The acetabulum was cleared of all material and the hip relocated one final time. The capsulomuscular flap was then repaired to the greater trochanter though an awl hole using the tag sutures. The short external rotators were repaired with a nonabsorbable suture. The fascia bren was closed with Vicryl. The subcutaneous layer was closed with barbed sutures and skin chacha. A jose dressing was applied and the patient was taken to recovery having tolerated the procedure well. Complications: none Post-operative Condition: stable Disposition: Acute Care Plan for aftercare: The patient will be maintained on a standard total hip replacement protocol with weight bearing as tolerated and posterior hip precautions. The patient will receive Aspirin and sequential compression devices for DVT prophylaxis. The patient will be discharged home when safe for the home environment.
[2024-12-19] MEDS: CEFAZOLIN 2 GM/100 ML PREMIX 100 ML IV ×2 (14:39→23:07)
[2024-12-19] MEDS: TRANEXAMIC ACID 1,000 MG VIAL 1000 MG INJ ×2 (14:48→15:41)
--- NOTE | 2024-12-19 15:06 | SUR.OPER ---
Lateral on padded OR bed. Gel axillary roll. Arms secured on padded armboard with pillow supporting top arm. Padded hip positioner braces x4 - anterior and posterior chest and pelvis. Additional gel pad used anterior pelvis. Gel pad under bottom leg from knee to foot and secured with tape over sheet.
[2024-12-19] MEDS: BUPIVACAINE LIPOSOME 266 MG/20 ML VIAL INJ (15:12)
[2024-12-19] MEDS: BUPIVACAINE 0.25% W/ EPI 30 ML VIAL 60 ML INJ (15:14)
[2024-12-19] MEDS: BUPIVACAINE 0.25% (PF) 60 ML, EPINEPHrine 0.3 MG INJ (15:15)
[2024-12-19] MEDS: OXYMETAZOLINE NASAL SPRAY 30 ML 2 SPRAYS NASAL (16:47)
[2024-12-19] MEDS: OXYCODONE IR 5 MG TABLET PO (18:03)
[2024-12-19] MEDS: ONDANSETRON 4 MG/2 ML INJ IV (18:03)
[2024-12-19] MEDS: hydrOXYzine 50 MG/ML INJ 25 MG IM (18:03)
--- NOTE | 2024-12-19 18:49 | PC.NURSE ---
Patient to room at 1830, She had a l.total posterior knee. UNRULY dressing is cdi with motor flashing green and in pocket. Pillow between knees. Patient is on LR at 100cc/hr. She was medicated with oxycodone and vistaril down in pacu, as well as tylenol. Patient had a severe nose bleed while in surgery. ENT Dr was paged and patient had a Rhino rocket placed and when she came up from PACU it was removed. Patient blew her nose up here and had a small amount of bleeding but this has stopped. Repositioned in bed and visiting with her family.
[2024-12-19] MEDS: IBUPROFEN 400 MG TABLET PO (20:42)
[2024-12-19] MEDS: ASPIRIN EC 81 MG TABLET PO (20:42)
[2024-12-19] MEDS: OXYCODONE IR 10 MG TABLET PO ×2 (20:43→23:07)
[2024-12-19] MEDS: ACETAMINOPHEN 325 MG TABLET 650 MG PO (20:44)
[2024-12-19] MEDS: DOCUSATE 100 MG CAPSULE PO (20:44)
[2024-12-19] MEDS: LACTATED RINGERS 1,000 ML 100 ML IV (20:45)
[2024-12-20] MEDS: OXYCODONE IR 5 MG TABLET PO ×4 (01:09→10:37)
[2024-12-20] MEDS: IBUPROFEN 400 MG TABLET PO (01:09)
[2024-12-20 01:20] VITALS: BP 127/77; PULSE 71; RESP 17; TEMP 36.2; O2SAT 96
[2024-12-20 05:35] LABS: Hematocrit 37.6 % (36-46); Hemoglobin 12.8 g/dL (12.0-16.0)
[2024-12-20] MEDS: ACETAMINOPHEN 325 MG TABLET 650 MG PO (05:45)
[2024-12-20] MEDS: CEFAZOLIN 2 GM/100 ML PREMIX 100 ML IV (06:19)
--- NOTE | 2024-12-20 07:30 | P.DS_ITS ---
History of Present Illness History of Present Illness Date Patient Seen: 12/20/24 Time Patient Seen: 07:31 Chief complaint: OPB left TING Narrative: The patient has had progressively worsening left hip pain with radiographic changes consistent with arthritis. Non-operative management has failed and the patient has requested total hip replacement. The risks, benefits and alternatives to surgery were discussed with the patient prior to proceeding. Risks discussed included, but were not limited to, failure to relieve pain, leg length discrepancy, dislocation, stiffness, infection, nerve damage, deep venous thrombosis, pulmonary embolism, stroke, coma, heart attack, permanent paralysis and , as well as the potential need for eventual revision of the prosthetic. Discharge Providers Provider Discharge Date: 12/20/24 Primary care physician: Kady Rene DO Consults: 12/19/24 06:00 Consult to Anesthesiology Routine Comment: Consulting Provider: Anesthesiologist Reason for consultation: Regional block for post operative pain control Has provider been notified: No 12/19/24 18:39 Consult to Discharge Planning Routine Comment: Consult to Occupational Therapy Evaluate & Treat Comment: Physician Instructions: Evaluate and treat Consult to Physical Therapy Evaluate & Treat Comment: Physician Instructions: post op TING protocol Discharge provider: Abe Guzman PA-C Summary Hospital Course Discharge Diagnosis: Left hip osteoarthritis Hospital Course: Procedure: Left total hip arthroplasty posterior approach Same procedure(s) as scheduled: Yes Surgeon: Dania Soriano Nitroglycerin Neutralizer: Abe Guzman Anesthesia Type: General Operative Notes Findings: Severe left hip OA, adequate bone, adequate stability Closure Type: primary Specimen(s): none sent Prosthetic devices, grafts, tissues, transplants, or devices: Soriano and nephew R3 50, neutral poly liner,one 6.5 mm screw, polar stem size 1 standard offset with collar, 36 by -3 Co Ch Applied: none Estimated Blood Loss (mL): 250 Blood products transfused: none Status at Discharge Cognitive/behavioral status at discharge: oriented Functional status at discharge: uses cane/walker Overall status at discharge: patient is back to baseline Time Spent with Patient Time spent: Less than 30 minutes Exam Vital Signs (past 8 hours): - 12/20/24 01:20 Temperature 97.2 F L Pulse Rate 71 Respiratory Rate 17 Blood Pressure 127/77 Pulse Oximetry 96 Oxygen Flow Rate 0 Oxygen Delivery Method Room Air Oxygen Flow Rate 0 Narrative Exam Narrative: Patient's pain is controlled with oral medication. ?Pain is localized to surgical site. ?Patient declines any new numbness or tingling at the surgical extremity. ?Patient denies any shortness of breath, dizziness, light-headedness, nausea, vomiting, fever or chills. 5/5 strength in hip flexors, quadriceps, hamstrings, DF, PF, EHL bilaterally. Sensation to light touch intact throughout BLE. Calves soft, compressible, nontender. Dressing placed intraoperatively CDI. Resp Effort & Inspection: normal respiratory effort and able to speak in complete sentences Objective Labs 12/20/24 04:50 Labs: Laboratory Results - last 24 hr 12/20/24 04:50 Hgb 12.8 Hct 37.6 PFSH Medical History (Updated 12/12/24 @ 08:04 by Rachel Schmidt RN) CHF (congestive heart failure) Impaired fasting glucose Left knee pain Cataracts, bilateral (2006) Allergic rhinitis Eczema Knee pain (~12/2010) Palpitation (08/2011) Hypokalemia (08/2011) Chronic back pain (2008) Scoliosis Asthma Chickenpox (1963) Hemorrhoids (1983) Hypothyroidism Hypertension Morbid obesity with body mass index (BMI) of 40.0 to 49.9 (08/25/16) Surgical History (Updated 12/12/24 @ 08:04 by Rachel Schmidt RN) History of left knee replacement (12/09/20) History of knee replacement (12/24/09) Family History Father Prostate cancer Alcoholism Mother Stroke Thrombophlebitis S/P triple vessel bypass Hypertension Heart disease Brother Stroke Brother Stroke Social History household members: spouse and children Smoking Status: Never smoker second hand exposure: No alcohol intake: former substance use type: does not use Discharge Assessment & Plan Assessment and Plan Assessment: Status post left total hip arthroplasty posterior approach Plan of Treatment: Discharge to home. ? Posterior Hip Pre-cautions. Ambulate and weight bear as tolerated with assistive devices. ? Aspirin 81 mg twice a day for 6 weeks for DVT prevention. ? Baseline pain relief with acetaminophen 500mg every 4 hours as needed and ibuprofen 400 mg every 4 hours as needed. ?Patient has been prescribed oxycodone 5 mg every 4 ?hours as needed for breakthrough pain. ? Initiate physical therapy in the next 5-10 days. ? Keep dressing clean and dry. Keep dressing on until first office visit. If dressing becomes dirty or disrupted, replace with appropriate sized dressing. Follow up in clinic in 2 weeks for wound check. Contact clinic if there are any questions or concerns. Discharge Plan Discharge Plan Patient Disposition: Home Provider Discharge Comment: DC pending PT approval Discharge orders & Medications Discharge Orders: Discharge (Order); Ordered 12/20/24 Ordered By: Abe Guzman Prescriptions: New aspirin 81 mg Tablet,Delayed Release (Dr/Ec) 81 mg PO BID Qty: 90 0RF ibuprofen 400 mg Tablet 400 mg PO Q4H PRN (Reason: Pain, Mild (1-3)) Qty: 120 0RF ondansetron 4 mg Tablet,Disintegrating 4 mg PO Q4HR PRN (Reason: Nausea) Qty: 10 1RF oxycodone 5 mg Tablet 5 mg PO Q4H PRN (Reason: Pain, Moderate (4-6)) Qty: 40 0RF Continued cetirizine [Zyrtec] 10 mg tablet 10 mg PO DAILY cholecalciferol (vitamin D3) 2,000 unit capsule See Rx Instructions PO DAILY Patient Comments: 2-4 softgels PO QDAY PRN Rx Instructions: 2-4 softgels PO QDAY PRN multivitamin tablet 1 tab PO DAILY carvedilol 6.25 mg tablet 6.25 mg PO BID isosorbide mononitrate 30 mg tablet extended release 24 hr 30 mg PO DAILY hydralazine 10 mg tablet 10 mg PO TID Jardiance 10 mg tablet 10 mg PO DAILY levothyroxine 25 mcg tablet 25 mcg PO DAILY Qty: 90 3RF (DME) Disabled Parking Permit See Rx Instructions .Route .MEDSUPPLY furosemide 40 mg tablet 40 mg PO DAILY PRN (Reason: edema) Rx Instructions: Take 1 tab PO PRN Follow up/Referrals: Kady Rene DO [Primary Care Provider, Family Practice] Diet/Activity/Treatments Diet: Diet as Tolerated Activity: Walk multiple times a day. Avoid high hip flexion. Cold/Heat Therapy: Use ice multiple times a day Other treatments: Use baby aspirin to prevent a blood clot Skin/Wound/Dressing Care Skin care: Okay to shower Report to your healthcare provider any signs of infection, such as:: chills, fever, night sweats, increased pain, unusual drainage and unusual redness Dressing: Leave dressing on Visit Report/Discharge Packet Instructions: DI for Hip Replacement, DI for Prescription Opioid Use Stand Alone Forms: Patient Portal/API, Surgery Discharge Print Language: Ukrainian Discharge Data Primary Care Provider: Kady Rene Attending Provider: Dania Soriano
--- NOTE | 2024-12-20 09:03 | CM.DANOTE ---
Initial DCP Assessment Note Pt is a 64 yo female, resident of [facility], POD#1 from left TING PCP: Kady Rene Payer: [employer] ([employer]) Reviewed chart, pt discussed in multidisciplinary rounds this morning. Therapy pending this morning. Patient has planned for home with spouse and family, DC order from Ortho has already been initiated this morning. No barriers identified at this time to patient's safe discharge home w/family to assist; close outpatient f/u recommended. Therapies pending. Social work team will plan to follow clinical course closely in case any DC needs or concerns arise. RIVERA Mcginnis Discharge Planning/Care Management CM Discharge Assessment Start: 12/19/24 12:12 Freq: Status: Active Protocol: Document 12/20/24 09:02 STEVEN (Rec: 12/20/24 09:03 STEVEN [id number]) Discharge Planning Assessment Assigned Discharge RIVERA Shah Stretching Machine Tender Frame DPOA/Assigned Gilles Bautista, spouse Designee Name Contact Information [phone] Advance Directives? No History Provided By Patient,Medical Record Prior Living House Arrangements Household Members spouse,children Independent with ADL Yes 's Is patient alert and Yes oriented? Patient/Family OP PT Therapy Preference Discharge Plan Home Transportation Spouse Arrangement Referrals Initiated None needed
--- NOTE | 2024-12-20 09:09 | PT.IIE ---
Current Diagnoses Unilateral primary osteoarthritis, left hip (12/19/24) Surgery Performed Operation Date: 12/19/24 13:45 Actual Procedures p Total Hip Arthroplasty(Left) - Dania Soriano MD Surgical History (Last Updated 12/12/24 @ 08:04 by Rachel Schmidt, RN) History of knee replacement (12/24/09) History of left knee replacement (12/09/20) Medical History (Last Updated 12/12/24 @ 08:04 by Rachel Schmidt RN) Allergic rhinitis Asthma Cataracts, bilateral (2006) CHF (congestive heart failure) Chickenpox (1963) Chronic back pain (2008) Eczema Hemorrhoids (1983) Hypertension Hypokalemia (08/2011) Hypothyroidism Impaired fasting glucose Knee pain (~12/2010) Left knee pain Morbid obesity with body mass index (BMI) of 40.0 to 49.9 (08/25/16) Palpitation (08/2011) Scoliosis Physical Therapy Inpatient Evaluation/Re-Eval M1 PT/OT-IP Prior Functional Status Start: 12/20/24 09:00 Freq: NEEDED Status: Active Protocol: Document 12/20/24 08:32 MB (Rec: 12/20/24 09:09 MB Desktop) Medical Review Prior Functional Status Medical History Yes Reviewed Diet/Fluid Regular Consistency Communication WNLs Mobility and Gait I, works as [employer] at [employer] Activities of Daily I Living and IADL's Social History Household Members spouse,children Living Arrangements House Number of Floors ( One Floor Floors) Number of Stairs To 2 steps to enter, one post and no rail at second Enter/Railing? Home Environment Standard Height Toilet,Walk in Shower Home Equipment Front Wheel Walker,Four Wheel Walker,Raised Toilet Seat Without Armrests,Shower Seat with Backrest,Hand Held Shower,Grab Bars In Shower Employment Status [employer] Work[employer] Employed Additional Social Adjustable bed History Comment M2 PT-IP Current Condition Start: 12/20/24 09:00 Freq: NEEDED Status: Active Protocol: Document 12/20/24 08:32 MB (Rec: 12/20/24 09:09 MB Desktop) Physical Therapy Current Condition Current Condition Evaluation Date 12/20/24 Treatment Diagnosis Left posterior hip replacement M3 PT-IP Subjective Start: 12/20/24 09:00 Freq: NEEDED Status: Active Protocol: Document 12/20/24 08:32 MB (Rec: 12/20/24 09:09 MB Desktop) Subjective Physical Therapy Visit Type Type Initial Evaluation Visit Start Time 08:32 Visit Stop Time 09:00 Number of FERRY ENGINEER Visits 0 Physical Therapy Visit Comments Patient Comments Pt is agreeable to therapies. Therapy Pain Assessment Pain When Pain Assessed At Rest Pain Present Pain Present Pain Reported Location left hip Intensity 3 Scale Used Numeric (0 - 10) M4 PT-IP Mobility and Gait Start: 12/20/24 09:00 Freq: NEEDED Status: Active Protocol: Document 12/20/24 08:32 MB (Rec: 12/20/24 09:09 MB Desktop) PT-Bed Mobility Assessment Rolling Level of Assist Standby Assistance Supine to Sit Supine to Sit Standby Assistance,Head of Bed Elevated Scooting Scooting to Edge of Standby Assistance Bed PT-Transfer Assessment Sit to and From Stand Sit to and from Standby Assistance Stand Equipment Transfer Assistive Gait Belt,Front Wheeled Walker Device Transfers Transfer Destination Chair,Toilet Transfer Technique Ambulation Transfer Ability Level of Assist Standby Assistance Comments Mobility Comments Pt loops gait belt around left foot so she can use it to scoot to EOB and she is able to mobilize, cues for hand placement for transfers, toileting with OT in BR Gait Assessment Gait Gait Assistance Standby Assistance Required: Distance (Feet) 20 Able to Maintain Yes Weight Bearing Status During Gait Assistive Devices Assistive Device Gait Belt,Front Wheeled Walker Orthotic/Prosthetic No Devices or Brace: Gait Deviations General Gait Pattern Antalgic,Decreased Stride Length,Decreased Feet Clearance,Flexed Trunk,Step-to Gait Factors Limiting Gait Function Factors Limiting Decreased Strength,Limited Range of Motion,Pain,Poor Gait Function Balance Comments Gait Comments 20'x1, 15'x1, 10'x1, nearby for assessment and treatment Stair Climbing Assessment Evaluation Level of Assist On Contact Guard Assistance Stairs Devices Stair Climbing Front Wheel Walker Assistive Devices Technique/Endurance Stair Climbing Ascend and Descend Direction Stair Climbing Step to Step Technique Number of Steps 1 Climbed Query Text: Stair Climbing Set # 1 Repetitions (reps) Comments Stair Climbing Ascend backward, right foot ascend first. Descend Comments forwards, left foot descend first. nearby, reviewed on how to support walker for safety PT-Balance Assessment Sitting Balance and Reactions Static Sitting Normal Balance Ability Dynamic Sitting Good Balance Ability Standing Balance and Reactions Static Standing Good Balance Ability Dynamic Standing Good Balance Ability Device Used RW M5 PT-IP Objective Assessments Start: 12/20/24 09:00 Freq: NEEDED Status: Active Protocol: Document 12/20/24 08:32 MB (Rec: 12/20/24 09:09 MB Desktop) Orientation Orientation/Cognition Level of Alertness Alert Orientation Name,Birthday Language Function No Deficits Noted Ability Safety Awareness Understands Safety Issues Memory Description No Deficits Noted Gross Range of Motion Upper Extremity ROM Impairments Defer to OT Lower Extremity ROM Assessment Left Impaired Impairments Post-op left THR Strength Lower Extremity Strength Assessment Left Impaired Comments Strength Comments Formal MMT deferred and weakness in left hip post-op Coordination Assessment Gross Coordination Gross Coordination Impaired Sensation Assessment Comments Sensation Comments NT Muscle Tone Muscle Tone WNL Yes M6 PT-IP Treatment Start: 12/20/24 09:00 Freq: NEEDED Status: Active Protocol: Document 12/20/24 08:32 MB (Rec: 12/20/24 09:09 MB Desktop) Physical Therapy Treatment Exercises Exercises Ankle Pumps,Gluteal Sets,Quad Sets,Heel Slides Education Education Provided Precautions,Weight Bearing Status,Post-Op Packet,Safety M7 PT-IP Assessment and Plan Start: 12/20/24 09:00 Freq: NEEDED Status: Active Protocol: Document 12/20/24 08:32 MB (Rec: 12/20/24 09:09 MB Desktop) PT Summary Assessment and Plan Potential Rehabilitation Good Potential Status of Condition Evolving at Evaluation Summary Impairments Pain,ROM,Strength,Balance,Coordination,Bed Mobility, Transfers,Gait,Activity Tolerance Assessment Summary Pt is a 64 y/o female POD1 left posterior hip replacement. Her is nearby for assessment and treatment and will be able to support her at home. Pt does well with understanding hip precautions and ed pt that Dr. Bo hill has no more than 70 deg flexion in it and she can clarify with surgeon when she sees her, otherwise, provided hospital posterior THR folder with education. Pt had pre-op PT with her PT at [facility] and she can call there as well for any other clarification. Her post-op PT appointment is next week. Pt does well with maintaining precautions, bed mobility, gait and stair training post-op. No further acute PT needs and d/c order is in from provider. Frequency of Treatment Frequency Of Discharge Treatment Precautions Posterior Hip No Hip Internal Rotation,No Hip Adduction Precautions Other Precautions No flexion past 70 deg in orders Weight Bearing Status Weight Bearing Weight Bear as Tolerated Status Recommendations To Nursing Amount of Assist Standby Assistance Needed Discharge Recommendations PT Discharge Home with 04/01 Assist Available,Outpatient PT Recommendations Transportation Needs Private Vehicle at Discharge - PT assist x1
--- NOTE | 2024-12-20 09:10 | OT.IP.EVAL ---
Current Diagnoses Unilateral primary osteoarthritis, left hip (12/19/24) Surgery Performed Operation Date: 12/19/24 13:45 Actual Procedures p Total Hip Arthroplasty(Left) - Dania Soriano MD Past Medical History (Last Updated 12/12/24 @ 08:04 by Rachel Schmidt, RN) Allergic rhinitis Asthma Cataracts, bilateral (2006) CHF (congestive heart failure) Chickenpox (1963) Chronic back pain (2008) Eczema Hemorrhoids (1983) Hypertension Hypokalemia (08/2011) Hypothyroidism Impaired fasting glucose Knee pain (~12/2010) Left knee pain Morbid obesity with body mass index (BMI) of 40.0 to 49.9 (08/25/16) Palpitation (08/2011) Scoliosis Surgical History (Last Updated 12/12/24 @ 08:04 by Rachel Schmidt, TATYANA) History of knee replacement (12/24/09) History of left knee replacement (12/09/20) Occupational Therapy Inpatient Evaluation/Re-Eval M1 PT/OT-IP Prior Functional Status Start: 12/20/24 09:00 Freq: NEEDED Status: Active Protocol: Document 12/20/24 09:10 [facility] (Rec: 12/20/24 10:35 [facility] Desktop) Medical Review Prior Functional Status Medical History Yes Reviewed Diet/Fluid Regular Consistency Communication WNLs Mobility and Gait I, works as [employer] at [employer] Activities of Daily I Living and IADL's Social History Household Members spouse,children Living Arrangements House Number of Floors ( One Floor Floors) Number of Stairs To 2 steps and no rails. Enter/Railing? Home Environment Standard Height Toilet,Walk in Shower Home Equipment Front Wheel Walker,Bedside Commode,Shower Seat with Backrest,Hand Held Shower Additional Social Pt has adjustable bed. History Comment M2 OT-IP Current Condition Start: 12/20/24 10:20 Freq: Status: Active Protocol: Document 12/20/24 09:10 [facility] (Rec: 12/20/24 10:35 [facility] Desktop) Occupational Therapy Current Condition Current Condition Evaluation Date 12/20/24 Treatment Diagnosis S/P L TING Posterior Diagnosis Onset Date 12/19/24 Post Operative Precautions Posterior Hip No Hip Flexion > 90 degrees,No Hip Internal Rotation,No Precautions Hip Adduction Other Precautions Per Dr Soriano no flexion greater than 70 degrees. Weight Bearing Status Weight Bearing Weight Bear as Tolerated Status M3 OT- IP Subjective and Pain Start: 12/20/24 10:20 Freq: Status: Active Protocol: Document 12/20/24 09:10 [facility] (Rec: 12/20/24 10:35 [facility] Desktop) OT- Subjective Occupational Therapy Visit Type Type Initial Evaluation Visit Start Time 08:35 Visit Stop Time 09:10 Occupational Therapy Visit Comments Patient Comments Pt agreed to get dressing and do training with her for ADL and mobility needs. Patient/Caregiver TO go home. Goals OT Pain Assessment Pain When Pain Assessed During Mobility Pain Present Pain Present Pain Reported Location left hip Intensity 3 Scale Used Numeric (0 - 10) M4 OT- IP ADL's Start: 12/20/24 10:20 Freq: Status: Active Protocol: Document 12/20/24 09:10 [facility] (Rec: 12/20/24 10:35 [facility] Desktop) OT [id number] General Evaluation Self-Feeding Ability Independent OT ADL-Grooming Comments OT Grooming Comments Pt able to wash her hands at the sink with FWW. OT ADL-Oral Care Comments Oral Care Comments Not observed. OT ADL-Dressing General Eval Lower Body Dressing Maximum Assistance Ability Areas Needing Underpants/Brief,Socks,Shoes Assistance Comments OT Dressing Comments Able to practice use of sock aid and certified welding inspector for LB dressing needs and pt would benefit from getting equipment. Educated to dress the LLE first and take out last. OT ADL-Toileting General Evaluation Toileting Ability Contact Guard Assistance Areas Needing Manage Clothing,Perform Perineal Hygiene Assistance Comments OT Toileting Educated best to stand and wipe, use of pads as needed Comments and to get a BSC. Use of pads at night as needed OT ADL-Bathing Comments OT Bathing Comments Pt will benefit from assist. M5 OT- IP IADL's Start: 12/20/24 10:20 Freq: Status: Active Protocol: Document 12/20/24 09:10 [facility] (Rec: 12/20/24 10:35 [facility] Desktop) OT-Instrumental Activities of Daily Living Home Safety Awareness Awareness of Need Good Awareness for Assistance at Home Ability to Problem Able to Problem Solve Solve Emergency Situations Medication Management Medication No Deficits Identified Management Money Management Money Management No Deficits Identified Meal Preparation Meal Preparation Caregiver Provides Assist Stone Polisher Machine Stone Polisher Machine Caregiver Provides Assist M6 OT- IP Functional Cognition Start: 12/20/24 10:20 Freq: Status: Active Protocol: Document 12/20/24 09:10 [facility] (Rec: 12/20/24 10:35 [facility] Desktop) Cognitive Factors Limiting Selfcare Function Cognitive Ability Level of Alertness Alert Patient Orientation Name,Age,Birthday,Month,Date,Year,Day of Week,Place, Situation Attention Span Capable of Focused Attention,Capable of Sustained Ability Attention Ability to Follow Able to Follow One Step Commands Commands Cognitive Comments Cognitive Assessment Pt able to follow commands for ADL and mobility needs Comments and needing vc to help incorporate her hip precautions for all needs. OT- Vision and Hearing OT- Hearing Assessment OT- Hearing WFL Assessment M7 OT- IP Mobility and Balance Start: 12/20/24 10:20 Freq: Status: Active Protocol: Document 12/20/24 09:10 [facility] (Rec: 12/20/24 10:35 [facility] Desktop) OT- Bed Mobility Assessment Supine to Sit Supine to Sit Assist Standby Assistance Sit to Supine Sit to Supine Assist Standby Assistance OT-Transfer Assessment Sit to and From Stand Sit to and from Contact Guard Assistance Stand Transfers Transfer Ability Contact Guard Assistance Technique Transfer Destination Bed,Chair,Toilet Transfer Technique Stand Step Pivot Devices Transfer Assistive Gait Belt,Front Wheeled Walker Devices Comments Mobility Comments Educated to slide her LLE forwards and before standing and sitting down and to reach back with her arms. CGA with FWW. OT- Balance Assessment Sitting Balance and Reactions Static Sitting Normal Balance Ability Dynamic Sitting Good Balance Ability Standing Balance and Reactions Static Standing Good Balance Ability Dynamic Standing Fair Balance Ability M8 OT- IP Objective Assessments Start: 12/20/24 10:20 Freq: Status: Active Protocol: Document 12/20/24 09:10 [facility] (Rec: 12/20/24 10:35 [facility] Desktop) OT Gross Range of Motion Upper Extremity Range of Motion Assessment Within Functional Limits OT Strength Upper Extremity Strength Assessment Within Functional Limits Comments Strength Comments WFL for needs. M9 OT- IP Assessment and Plan Start: 12/20/24 10:20 Freq: Status: Active Protocol: Document 12/20/24 09:10 [facility] (Rec: 12/20/24 10:35 [facility] Desktop) OT Summary Assessment and Plan Potential Rehabilitation Excellent Potential Analytic Complexity Low at Evaluation Summary OT Impairments Pain,Balance,Functional Mobility,Dressing,Toileting, Bathing,Toilet Transfers,Shower Transfers Progress Towards Progressing Toward Goals Goals Assessment Summary Pt low complexity and main barriers are pain, steps, and needing occasional reminders for her hip precautions. Pt will benefit form getting LB dressing equipment and BSC. Pt to go home with assist and have outpt PT. Goals Self-Feeding Goal Independent Grooming Goal Independent Dressing Goal Independent,Long Handled Shoe Horn,Strategic Sourcing Specialist,Sock Aid Toileting Goal Independent Bathing Goal Minimal Assistance Toilet Transfer Goal Independent Shower Transfer Goal Standby Assistance Days to Meet Goals 5 Frequency of Treatment Frequency Of Once a Day Treatment Treatment Plan OT Treatment Plan ADL Training,Functional Mobility,Patient/Family Education,Discharge Planning Discharge Recommendations OT Discharge Home with Assistance,Outpatient PT Recommendations Home Equipment Needs LB dressing, BSC Transportation Needs Private Vehicle at Discharge
[2024-12-20] MEDS: CHOLECALCIFEROL (VITAMIN D3) 1,000 UNIT TABLET 2000 UNIT PO (09:30)
[2024-12-20] MEDS: LEVOTHYROXINE 25 MCG TABLET PO (09:30)
[2024-12-20] MEDS: DOCUSATE 100 MG CAPSULE PO (09:30)
[2024-12-20] MEDS: MULTIVITAMIN 1 TABLET 1 TAB PO (09:30)
[2024-12-20] MEDS: LORATADINE 10 MG TABLET PO (09:30)
[2024-12-20] MEDS: ISOSORBIDE MONONITRATE ER 30 MG TABLET PO (09:30)
[2024-12-20] MEDS: ASPIRIN EC 81 MG TABLET PO (09:34)
[2024-12-20 10:21] VITALS: PULSE 70
--- NOTE | 2024-12-20 11:07 | PC.NURSE ---
Day shift: Left uit via WC at approx 1100. Taken to car by this instructional writer. Spouse is driving them home. Paperwork signed and all questions answered. New MD scripts sent to Pt's pharmacy. Pt has all persnal belongings. PCI dressing function WNL. Dressing is CDI. CMS intact and PPP. Cleared by PT/OT.
== END 2024-12-20 10:55 | disposition home or self-care (01) ==
LOC: OR 11:57 → AC 11:58
PROVIDERS: PCP Family Medicine; Referring Provider Orthopaedic Surgery; Visit Provider Orthopaedic Surgery
PROC: 0SRB0JZ Replacement of Left Hip Joint with Synthetic Substitute, Open Approach (ICD-10-PCS; CPT 27130; principal; 2024-12-19 13:45)
DX: M16.12 Unilateral primary osteoarthritis, left hip (principal)
CPT/HCPCS: 27130; 36415; 72170; 73502; 85014; 85018; 97161; 97165; 97530; 97535; C1776; A9270; C1713; J0165; J0666; J0690; J1100; J1171; J2405; J2704; J3410

== ENCOUNTER → 2025-05-11 09:47 | Outpatient (CLI) | payer OTHER, SELFPAY ==
[2024-12-19 23:30] VITALS: BMI 36.1
--- NOTE | 2025-05-11 09:49 | DI.MG.S_ITS ---
MM screening mammo BI: 05/11/2025. BI-RADS: 1 CLINICAL: 64-year old female for bilateral screening mammogram. Tyrer-Cuzick lifetime risk of 6.9%. No personal or first-degree family history of breast cancer. PRIOR EXAMS 01/28/2024, 08/13/2021, 07/11/2021. MAMMOGRAPHY TECHNIQUE: 2D and 3D (tomosynthesis) digital mammographic views obtained, with additional images as needed for full coverage. Current study was also evaluated with a Computer Aided Detection (CAD) system. DENSITY B. There are scattered areas of fibroglandular density. MAMMOGRAPHY FINDINGS Bilateral: No suspicious mass, asymmetry, microcalcification, or other abnormality seen. IMPRESSION: * No evidence of malignancy. RECOMMENDATIONS Bilateral * Annual screening mammography. OVERALL ASSESSMENT CATEGORY BI-RADS-1: Negative. [employer] recommends annual screening mammography beginning at age 40 for women with average risk of breast cancer. ELECTRONICALLY SIGNED: Melvina Johnson M.D. on 05/13/2025 at 03:29:11 PM PT Interpreting Station ID: [id number]
== END ==
LOC: MAMMO 09:48
PROVIDERS: PCP Family Medicine; Referring Provider Family Medicine; Visit Provider Family Medicine
DX: Z12.31 Encounter for screening mammogram for malignant neoplasm of breast (principal)
CPT/HCPCS: 77063; 77067